=== PATIENT | male | born 1980 | race Caucasian/White ===

== ENCOUNTER 2016-11-22 18:32 | Emergency (ER) | payer SELFPAY ==
[2016-11-22 18:41] VITALS: RESP 18; O2SAT 100
[2016-11-22] MEDS ORDERED: Sodium Chloride 0.9% 1,000 ML IV ONE (19:10)
--- NOTE | 2016-11-22 19:14 | C.PDOC ---
History Of Present Illness 36 year old male with a Hx of diabetes who presents to the ER with a complaint of high blood sugar. Patient reports having a blood sugar of 500 at home; he states he is complaint with his metformin. Patient is also complaining of a mild headache; denies fever, chills, or other complaints. Time Seen by Provider: 11/22/16 19:07 Chief Complaint (Nursing): High Blood Sugar History Per: Patient History/Exam Limitations: no limitations Onset/Duration Of Symptoms: Hrs Current Symptoms Are (Timing): Still Present Current Diabetic Medications: Other (Metformin) Causative (Exacerbating) Factor(s): Other (Not known) Associated Infectious Symptoms: denies: Cough, Urinary Urgency, Urinary Frequency, Vomiting Treatment Prior To Provider Evaluation: None Recent travel outside of the [place]: No Past Medical History Reviewed: Historical Data, Nursing Documentation, Vital Signs Vital Signs: Last Vital Signs Temp 98.2 F 11/22/16 21:17 Pulse 77 11/22/16 21:17 Resp 18 11/22/16 21:17 BP 124/80 11/22/16 21:17 Pulse Ox 100 11/22/16 21:17 - Medical History PMH: Diabetes, HTN Surgical History: No Surg Hx Family History: States: Unknown Family Hx - Social History Hx Tobacco Use: Yes Hx Alcohol Use: Yes Hx Substance Use: No - Immunization History Hx Tetanus Toxoid Vaccination: No Hx Influenza Vaccination: No Hx Pneumococcal Vaccination: No Review Of Systems Except As Marked, All Systems Reviewed And Found Negative. Constitutional: Negative for: Fever, Chills Gastrointestinal: Negative for: Vomiting Genitourinary: Negative for: Frequency Neurological: Positive for: Headache (Mild) Physical Exam - Physical Exam Appears: Non-toxic, No Acute Distress Skin: Normal Color, Warm, Dry Head: Atraumatic, Normacephalic Oral Mucosa: Moist Chest: Symmetrical, No Tenderness Cardiovascular: Rhythm Regular, No Murmur Respiratory: Normal Breath Sounds, No Wheezing Gastrointestinal/Abdominal: Soft, No Tenderness Neurological/Psych: Oriented x3, Normal Speech, Normal Cognition ED Course And Treatment - Laboratory Results Result Diagrams: 11/22/16 19:42 11/22/16 19:42 O2 Sat by Pulse Oximetry: 100 (Room air) Pulse Ox Interpretation: Normal Medical Decision Making Medical Decision Making: r/o dka. labs imaging pending Impression: 36 year old male with high blood sugar Plan: * Blood work * EKG * IV fluids * Urinalysis 900: no e/o of dka. labs unremarkable. pt feels better. s/p fluids bgm 250. advise outpt f/u and return precautions. nonspeciifc luekocytosis. no cough/ cardiopulm complaints. no meningmus. urine neg. pt notified of results. Disposition - Disposition Referrals: [facility] [Outside] [facility] [Outside] Disposition: HOME/ ROUTINE Disposition Time: 08:00 Condition: STABLE Additional Instructions: please follow up with your doctor. return to er with worsening symptoms. please discuss management of your meds with your doctor. Instructions: Acute Headache (DC), Leukocytosis (ED), Diabetic Hyperglycemia ( ED) - Clinical Impression Clinical Impression: Headache, Hyperglycemia - Scribe Statement The provider has reviewed the documentation as recorded by the Scribe Daniel Corado All medical record entries made by the Scribe were at my direction and personally dictated by me. I have reviewed the chart and agree that the record accurately reflects my personal performance of the history, physical exam, medical decision making, and the department course for this patient. I have also personally directed, reviewed, and agree with the discharge instructions and disposition.
[2016-11-22 19:49] LABS: BASO # 0.1 K/uL (0.0-0.2); BASO % 0.8 % (0.0-2.0); EOS # 0.2 K/uL (0.0-0.7); EOS % 1.4 % (0.0-4.0); HEMOGLOBIN 14.8 g/dL (12.0-18.0); LYMPH # 2.9 K/uL (1.0-4.3); LYMPH % 23.6 % (20.0-40.0); MEAN CELL VOLUME 80.8 fL (80.0-94.0); MEAN CORPUSCULAR HGB CONC 32.2 g/dL (33.0-37.0); MEAN PLATELET VOLUME 9.3 fL (7.2-11.7); MONO # 0.8 K/uL (0.0-0.8); MONO % 6.2 % (0.0-10.0); NEUT # 8.3 K/uL (1.8-7.0); NRBC % 0.1 % (0.0-2.0); RBC 5.7 Mil/uL (4.40-5.90); RED CELL DISTRIBUTION WIDTH 13.7 % (11.5-14.5); WHITE BLOOD COUNT 12.2 K/uL (4.8-10.8)
[2016-11-22 19:55] LABS: VENOUS BLOOD GAS PCO2 40 mmHg (40-60); VENOUS BLOOD GAS PO2 47 mm/Hg (30-55)
[2016-11-22 20:03] LABS: PROTHROMBIN TIME 10.8 SECONDS (9.7-12.2)
[2016-11-22 20:04] LABS: ALBUMIN 4.2 g/dL (3.5-5.0)
[2016-11-22 20:06] LABS: GFR AFRICAN-AMERICAN > 60; GFR NON-AFRICAN AMERICAN > 60
[2016-11-22 20:07] LABS: ALB/GLOB RATIO 1.2 (1.0-2.1); ALT/SGPT 39 U/L (21-72); AST/SGOT 27 U/L (17-59); BLOOD UREA NITROGEN 14 mg/dL (9-20); SQUAMOUS EPITHIAL < 1 /hpf (0-5); URINE BILIRUBIN NEGATIVE (NEGATIVE); URINE BLOOD NEGATIVE (NEGATIVE); URINE CLARITY Clear (Clear); URINE COLOR Straw (YELLOW); URINE GLUCOSE (UA) 3+ mg/dL (Normal); URINE LEUKOCYTE ESTERASE NEG Leu/uL (Negative); URINE NITRATE NEGATIVE (NEGATIVE); URINE PROTEIN NEGATIVE (NEGATIVE); URINE UROBILINOGEN NORMAL mg/dL (0.2-1.0)
[2016-11-22 20:08] LABS: CALCIUM 8.8 mg/dl (8.6-10.4)
[2016-11-22 21:18] VITALS: BP 124/80; PULSE 77; TEMP 98.2
== END 2016-11-22 21:18 | disposition home or self-care (01) ==
LOC: C.ER 18:32
DX: E11.65 Type 2 diabetes mellitus with hyperglycemia (principal); R51 Headache
CPT/HCPCS: 80053; 81001; 82803; 82948; 83930; 84484; 85025; 85610; 85730; 96360; 99284; J7040